=== PATIENT | female | born 1940 | race Caucasian/White ===

== ENCOUNTER → 2018-05-14 | Outpatient (CLI) | payer MEDICARE, BC ==
--- NOTE | 2018-05-14 16:28 | Diagnostic Imaging Report ---
EXAM: CT Chest WITHOUT contrast 05/14/2018 3:13 PM INDICATION: Chronic obstructive pulmonary disease. COMPARISON: None TECHNIQUE: Chest was scanned utilizing a multidetector helical scanner from the lung apex through the level of the adrenal glands without administration of IV contrast. Absence of intravenous contrast decreases sensitivity for detection of lymphadenopathy and vascular pathology. Coronal and sagittal reformations were obtained. Routine protocol was performed. IV CONTRAST: None RADIATION DOSE: Total DLP: 217.27 mGy*cm Estimated effective dose: (DLP x 0.014 x size factor) mSv COMPLICATIONS: None FINDINGS: LINES/ TUBES: None. Left sided cardiac pacemaker with right atrial and right ventricular leads. LUNGS AND AIRWAYS: Moderate to severe bilateral diffuse centrilobular pulmonary emphysema. 8 mm spiculated lesion in the right apex may reflect scarring, however, a development neoplasm cannot be excluded. 2 mm non-calcified nodule in the posterior right lower lobe on image 69. Biapical pleural-parenchymal densities suggestive of scarring. No focal consolidations. PLEURA: The pleural spaces are clear. HEART AND MEDIASTINUM: The thyroid gland is normal. No mediastinal, hilar or axillary lymphadenopathy. The heart is normal in size.. There is no pericardial effusion. UPPER ABDOMEN: Limited non-contrast views of the upper abdomen show a partially visualized 2.0 cm lobulated lesion exophytic of the upper interpolar region of the left kidney. Mild thickening of the left adrenal gland with low attenuation possibly represent the presence of a small adenoma. 1.4 similar low-attenuation lesion in the left hepatic lobe on image 103 series 2 suggestive of a small cyst. BONES: Multilevel thoracic diameter. Mild multilevel spondylosis. SOFT TISSUES: Unremarkable. IMPRESSION: 1. Bilateral diffuse moderate to severe centrilobular emphysema. 2. 8 mm spiculated lesion in the right apex. Recommend CT chest nodule protocol in 3 months to evaluate stability and exclude developing neoplasm. Comparison with prior examinations if any available would be helpful. Signed by: Dr. Mirtha Gutierrez M.D. on 05/14/2018 4:25 PM
== END ==
LOC: CT 15:04
PROVIDERS: ATTEND Internal Medicine Critical Care Medicine
DX: J44.9 Chronic obstructive pulmonary disease, unspecified (principal); R91.8 Other nonspecific abnormal finding of lung field; Z95.0 Presence of cardiac pacemaker; Z87.891 Personal history of nicotine dependence
CPT/HCPCS: 71250